=== PATIENT | male | born 1955 | race Caucasian/White ===

== ENCOUNTER 2024-06-29 10:27 | Emergency (ER) | payer OTHER, SELFPAY ==
[2024-06-29 10:34] VITALS: BP 145/86
[2024-06-29 10:57] LABS: % Basophils 1.2 % (0-2); % Immature Granulocytes 0.2 % (0-0.5); % Monocytes 12.4 % (1.7-9.3); % Neutrophils 60.2 % (42.2-75.2); Absolute Basophils 0.1 10^3/uL (0-0.2); Absolute Eosinophils 0.1 10^3/uL (0-0.7); Absolute Lymphocytes 1.2 10^3/uL (1.2-3.4); Absolute Monocytes 0.6 10^3/uL (0.1-0.6); Hemoglobin 12.1 g/dL (13.0-18.0); Mean Corp Hgb Conc. 30.3 g/dL (33.0-37.0); Mean Corpuscular Hgb 22.7 pg (27.0-31.0); Mean Corpuscular Volume 74.9 fL (80.0-94.0); Mean Platelet Volume 10.3 fL (7.4-10.4); Nucleated Red Blood Cells % 0 % (-); Platelet Count 189 10^3/uL (130-400); Red Blood Cell Count 5.34 10^6/uL (4.70-6.10); Red Cell Dist. Width 18.1 % (11.5-14.5); White Blood Cell Count 4.9 10^3/uL (4.8-10.8)
[2024-06-29 11:10] LABS: ALT (SGPT) 22 U/L (0-50); AST (SGOT) 27 U/L (17-59); Alkaline Phosphatase 63 U/L (38-126); Blood Urea Nitrogen 22 mg/dl (9-20); Carbon Dioxide 26 mmol/L (22-30); Chloride 103 mmol/L (98-107); Glucose 148 mg/dl (70-99); Potassium 4.2 mmol/L (3.5-5.1); Sodium 136 mmol/L (135-145); Total Bilirubin 0.8 mg/dl (0.2-1.3); Total Protein 6.3 g/dl (6.3-8.2); eGFR > 60.00
[2024-06-29 11:14] VITALS: BP 125/90
[2024-06-29 11:15] VITALS: BP 143/87
[2024-06-29 11:15] LABS: Troponin I < 0.012 ng/ml
[2024-06-29 11:17] VITALS: BP 141/80
[2024-06-29 11:22] VITALS: BP 125/90; BP 141/80; BP 143/87; PULSE 57; PULSE 59
--- NOTE | 2024-06-29 11:25 | ED.GENMED ---
History of Present Illness
General
Chief Complaint: Fainting Sensation
Time Seen by Provider: 06/29/24 11:04
History of Present Illness
History of Present Illness:
69-year-old man with history of hypertension, hyperlipidemia, diabetes presenting to the emergency department with near syncope. Patient states that he only had coffee this morning. He went to the grocery store and got something from the bottom
shelf. When he got up he got lightheaded dizzy and diaphoretic. He sat down. He did not pass out. This never happened to him before. Symptoms have resolved. Multiple family members with the flu at home. He does feel slightly dehydrated. No
chest pain difficulty breathing palpitations hemoptysis travel or malignancy. No melena or hematochezia. No abdominal pain.
Phy Exam
Physical Exam
Physical Exam:
GENERAL: in no acute distress
HEENT: normocephalic, extraocular movements intact, dry oral mucosa
NECK: normal inspection
RESPIRATORY: no respiratory distress, clear to auscultation bilaterally
CARDIOVASCULAR: regular rate and rhythm
ABDOMEN/: soft, non-distended, non-tender to palpation, no rebound or guarding
EXTREMITIES: non-tender, no edema/swelling
NEUROLOGIC: awake and alert, moves all extremities, equal strength in upper and lower extremities, normal sensation
SKIN: warm
Course
Orders/Labs/Results
Orders:
Orders
06/29/24 10:37
EKG [Electrocardiogram (*1)] Urgent
Reason for Study: Vertigo / Dizzy
EKG- Treatment ONCE
06/29/24 10:40
Complete Blood Count/With Diff Urgent
Comprehensive Metabolic Panel Urgent
Magnesium Urgent
Troponin I Urgent
06/29/24 11:23
Add On- LAB Urgent
Tests Added?: magnesium
Orthostatic VS- Treatment ONCE
06/29/24 11:32
0.9% Sodium Chloride 1000 ml [Nss] 1,000 ml IV BOLUS
06/29/24 11:39
COVID-19 Antigen Urgent
Source: Nasal Swab
Influenza A+B Rapid Molecular Urgent
GOVIND Source: Nasal Swab
Specimen Description:
Abnormal Lab Results
06/29/24
10:40
Hgb 12.1 L g/dL
(13.0-18.0)
MCV 74.9 L fL
(80.0-94.0)
MCH 22.7 L pg
(27.0-31.0)
MCHC 30.3 L g/dL
(33.0-37.0)
RDW 18.1 H %
(11.5-14.5)
Monocytes % 12.4 H %
(1.7-9.3)
BUN 22 H mg/dl
(9-20)
Glucose 148 H mg/dl
(70-99)
06/29/24 10:40
06/29/24 10:40
Vital Signs
Initial and Last Documented VS:
Initial Vital Signs
Temp Pulse Resp BP Pulse Ox
98.5 F 60 18 145/86 98
06/29/24 10:34 06/29/24 10:34 06/29/24 10:34 06/29/24 10:34 06/29/24 10:34
Last Documented Vital Signs
Temp Pulse Resp BP Pulse Ox
98.5 F 61 14 140/86 97
06/29/24 10:34 06/29/24 12:00 06/29/24 12:00 06/29/24 12:00 06/29/24 11:17
MDM/Problems Addressed
Differential Diagnosis Includes:
Patient is a 69-year-old man presenting to the emergency department after near syncopal event. Vitals unremarkable and exam does show dry oral mucosa. Near syncope likely orthostatic in nature. History and exam not consistent with cardiac
etiology or neuro. Will check blood work EKG COVID flu swab and obtain orthostatic vital signs.
*Critical Care Note
Total Time (30-74mins, 75-104mins- exclusive of procedures): Not Applicable
Update Note
Update Note:
Orthostatic vitals are positive. EKG per my interpretation normal sinus rhythm. Blood work is otherwise reassuring. Patient feels much better after receiving IV fluids. Will discharge at this time
ED Attending Note
-
Portions of this chart may have been created with voice recognition software.� Occasional wrong word or��sound alike� substitutions may have occurred due to the inherent limitations of voice recognition software.
Discharge Plan
Departure
Patient Disposition: Home (Routine Discharge)
Date of Disposition: 06/29/24
Time of Disposition: 13:19
Patient with high blood pressure during this ER visit?: No
Discharge Problem:
Near syncope, Orthostatic dizziness
Instructions: Near Fainting (DC)
Referrals:
Vance Griffin MD [Family Provider] -
Activity Restrictions/Additional Instructions:
You have been evaluated in the Emergency Department today for almost passing out. Your evaluation did not show evidence of medical conditions requiring emergent intervention at this time, however we recommend you follow up with your primary care
provider for further testing as an outpatient. Please make sure you drink at least 64 ounces of water a day.
Please follow up with your primary care doctor in 2-3 days.
Return to the ER immediately for worsening or uncontrolled symptoms, headache, chest pain, shortness of breath, persistent vomiting, vision changes, recurrent fainting, or for any other concerning symptoms.
Thank you for choosing us for your care.
Interventions
Interventions:
*Risk Screen - Suicide Last Done: 06/29/24 10:34
*General Assessment Last Done: 06/29/24 10:34
*Neglect/Abuse Screening Last Done: 06/29/24 10:34
ED- Fall Risk Assessment Last Done: 06/29/24 12:19
*ED COVID-19 Vaccine History Last Done: 06/29/24 10:34
ED- Cardiac Assessment Last Done: 06/29/24 12:19
ED- Neurological Assessment Last Done: 06/29/24 12:19
Discharge Date and Time
Print Language: LATVIAN
[2024-06-29] MEDS: NSS 1000 IV (11:39)
[2024-06-29 12:00] VITALS: BP 140/86
[2024-06-29 12:16] VITALS: BMI 36.3
[2024-06-29 12:25] LABS: COVID-19 Antigen Negative (Negative)
[2024-06-29 13:03] LABS: Magnesium 1.9 mg/dl (1.6-2.3)
== END 2024-06-29 13:48 | disposition home or self-care (01) ==
LOC: EMR 10:27
PROVIDERS: Emergency Medicine; EMERGENCY PHYSICIAN Student in an Organized Health Care Education/Training Program; FAMILY PHYSICIAN Family Medicine
DX: R55 Syncope and collapse (principal); R42 Dizziness and giddiness; I10 Essential (primary) hypertension; E78.5 Hyperlipidemia, unspecified; E11.9 Type 2 diabetes mellitus without complications; Z11.52 Encounter for screening for COVID-19
CPT/HCPCS: 99284; 96360; 80053; 83735; 84484; 85025; 87502; 87811; 93005

== ENCOUNTER → 2025-01-17 12:58 | Outpatient (REF) | payer OTHER, SELFPAY | LOC: RCS 12:58 | PROVIDERS: ATTENDING PHYSICIAN Internal Medicine Cardiovascular Disease; FAMILY PHYSICIAN Family Medicine | DX: R06.02 Shortness of breath (principal) | CPT/HCPCS: 93017 ==